=== PATIENT | male | born 1955 | race Caucasian/White ===

== ENCOUNTER 2019-10-28 06:59 | Day surgery (SDC) | payer BC ==
[~2019-10-28 06:59] MED LIST: Midazolam 1 MG/ML 2 ML SDV ONE; Propofol 200 MG/20 ML SDV ONE
[2019-10-28] MEDS ORDERED: Lactated Ringers 1,000 ML IV SCH (07:00)
[2019-10-28] MEDS ORDERED: Sodium Chloride 0.9% 10 ML Syringe FLUSH PRN (07:00)
[2019-10-28] MEDS ORDERED: Midazolam 1 MG/ML 2 ML SDV IV ONE (07:00)
[2019-10-28] MEDS ORDERED: Propofol 200 MG/20 ML SDV IV ONE (07:00)
--- NOTE | 2019-10-28 08:41 | PCM.PRNOTE ---
- Free Text/Narrative Note: PROCEDURE PERFORMED: Esophagogastroduodenoscopy with biopsy PRE-PROCEDURE DIAGNOSIS/INDICATION FOR PROCEDURE: Persistent reflux symptoms CONSENT: Informed consent was obtained prior to the procedure after discussion of the risks (including pain, bleeding, infection, perforation, need for further procedures, adverse reaction to anesthesia, cardiovascular event), benefits and alternatives and expected outcomes. Verbal consent given and consent form signed. PROCEDURAL PAUSE: Completed SEDATION: Per anesthesia DESCRIPTION OF PROCEDURE: Patient was brought back to the operating room and placed in a left lateral decubitus position. Bite block placed. After adequate sedation and anesthetic was administered, endoscope was inserted into the patient's mouth and was passed easily through the esophagus and stomach into the duodenum without difficulty. Examined duodenum normal appearing. Pylorus and stomach, including viewing in retroflexion, normal appearing normal appearing aside from mild superficial gastritis for which biopsies obtained. No hiatal hernia was present with the gastroesophageal junction at 45 cm from the incisors. Esophagus normal appearing. The scope was removed without difficulty. Patient tolerated the procedure well. No complications. IMPRESSION: Esophagogastroduodenoscopy performed revealing mild gastritis, pathology now pending. PLAN: Will contact the patient when pathology results received. Complete 2 week burst of PPI and then trial de-escalation to H2B.
== END 2019-10-28 09:20 | disposition home or self-care (01) ==
LOC: KA.SDS 06:59
PROVIDERS: ATTEND Family Medicine
DX: K29.70 Gastritis, unspecified, without bleeding (principal); K21.9 Gastro-esophageal reflux disease without esophagitis; Z79.899 Other long term (current) drug therapy
CPT/HCPCS: 00731; 43239; J2250; J2704; J7120